=== PATIENT | female | born 1960 | race Hispanic/Latino ===

== ENCOUNTER 2025-08-27 14:58 | Observation (INO) | payer MEDICARE, BC ==
[2025-08-27 15:46] LABS: #Basophils 0.03 10x3/uL (0.0-0.2); #Eosinophils 0.10 10x3/uL (0.0-0.5); #Monocytes 0.33 10x3/uL (0.0-1.1); #Neutrophils 2.03 10x3/uL (1.5-8.4); %Basophils 0.9 % (0.0-2.0); %Eosinophils 3.2 % (0.0-6.0); %Lymphocytes 21.1 % (18.0-47.0); %Monocytes 10.4 % (0.0-10.0); %Neutrophils 64.1 % (40.0-75.0); Hematocrit 40.1 % (34.9-44.5); Hemoglobin 13.3 g/dL (12.0-15.5); Mean Corpuscular Hemoglobin 29.1 pg (27.0-33.0); Mean Corpuscular Volume 87.7 fL (81.6-98.3); Platelet Count 227 10x3/uL (150-450); Red Blood Cell (RBC) Count 4.57 10x6/uL (3.90-5.03); White Blood Cell (WBC) Count 3.17 10x3/uL (3.5-10.5)
[2025-08-27] MEDS ORDERED: Acetaminophen 500 MG TAB ONE (15:54)
[2025-08-27 16:01] LABS: ALT (SGPT) 14 U/L (Less than 34); AST (SGOT) 26 U/L (11-34); Albumin 3.8 g/dL (3.1-4.5); Alkaline Phosphatase 82 U/L (40-110); Anion Gap 14 mmol/L (10-20); BUN (Urea Nitrogen) 12 mg/dL (9.8-20.1); Bilirubin, Total 0.7 mg/dL (0.3-1.2); Calc. Creatinine Clearance 0 mL/min (70-130); Calcium 8.9 mg/dL (7.8-10.44); Carbon Dioxide 21 mmol/L (23-31); Chloride 110 mmol/L (98-107); Globulin 2.8 g/dL (2.4-3.5); Glucose 98 mg/dL (80-115); Potassium 3.8 mmol/L (3.5-5.1); Sodium 141 mmol/L (136-145)
[2025-08-27 16:08] LABS: Troponin I Less than 0.010 ng/mL (< 0.028)
[2025-08-27] MEDS ORDERED: Senokot S 8.6-50 MG TAB PO PRN (17:51)
[2025-08-27] MEDS ORDERED: Melatonin 3 MG TAB PO PRN (17:51)
[2025-08-27] MEDS ORDERED: Calcium Carbonate 500 MG ChewTAB PO PRN (17:51)
[2025-08-27] MEDS ORDERED: Electrolyte Replacement Protocol 1 EACH FS SCH (18:00)
[2025-08-27 18:03] VITALS: BMI 35.9
[2025-08-27 18:04] LABS: Magnesium 2.0 mg/dL (1.6-2.6)
[2025-08-27] MEDS ORDERED: Magnesium Sulfate In Water 4 GM in Premix 1 BAG IVPB PRN (18:15)
[2025-08-27] MEDS ORDERED: PHOS-NAK 1 PKT PACK PO PRN (18:15)
[2025-08-27] MEDS ORDERED: Potassium Chloride 20 MEQ in Premix 1 BAG IVPB PRN (18:15)
[2025-08-27 20:08] LABS: Troponin I Less than 0.010 ng/mL (< 0.028)
[2025-08-27 23:27] LABS: Troponin I Less than 0.010 ng/mL (< 0.028)
[2025-08-28 04:26] LABS: #Basophils Less than 0.03 10x3/uL (0.0-0.2); #Eosinophils 0.16 10x3/uL (0.0-0.5); #Monocytes 0.35 10x3/uL (0.0-1.1); #Neutrophils 1.65 10x3/uL (1.5-8.4); %Basophils 0.7 % (0.0-2.0); %Eosinophils 5.2 % (0.0-6.0); %Lymphocytes 28.8 % (18.0-47.0); %Monocytes 11.4 % (0.0-10.0); %Neutrophils 53.9 % (40.0-75.0); Hematocrit 37.0 % (34.9-44.5); Hemoglobin 12.7 g/dL (12.0-15.5); Mean Corpuscular Hemoglobin 30.2 pg (27.0-33.0); Mean Corpuscular Volume 87.9 fL (81.6-98.3); Platelet Count 204 10x3/uL (150-450); Red Blood Cell (RBC) Count 4.21 10x6/uL (3.90-5.03); White Blood Cell (WBC) Count 3.06 10x3/uL (3.5-10.5)
[2025-08-28 04:45] LABS: Anion Gap 12 mmol/L (10-20); BUN (Urea Nitrogen) 9 mg/dL (9.8-20.1); Calc. Creatinine Clearance 157 mL/min (70-130); Calcium 8.5 mg/dL (7.8-10.44); Carbon Dioxide 22 mmol/L (23-31); Cardiac Risk 3.0 (Less than 4.5); Chloride 109 mmol/L (98-107); Cholesterol 142 mg/dl (< 200 Desired); Glucose 79 mg/dL (80-115); HDL Cholesterol 47 mg/dL (>60 Neg Risk); LDL Cholesterol, Calculated 81 mg/dL; Magnesium 1.9 mg/dL (1.6-2.6); Potassium 3.3 mmol/L (3.5-5.1); Sodium 140 mmol/L (136-145); Triglycerides 72 mg/dL (Less than 150)
[2025-08-28] MEDS: Acetaminophen 325 MG TAB PO PRN (05:36)
[2025-08-28] MEDS: PNEUMOC 20-VAL CONJ-DIP CRM/PF 0.5 ML SYRINGE IM ONE (10:08)
[2025-08-28] MEDS: Pantoprazole 40 MG DR.TAB PO SCH (10:08)
[2025-08-28] MEDS: Enoxaparin 40 MG (0.4 mL) SYRINGE SC SCH (10:08)
[2025-08-28] MEDS: Metoprolol Succinate XL 25 MG ER.TAB PO SCH (11:35)
[2025-08-28 12:49] VITALS: BP 102/51; TEMP 97.9
[2025-08-29] MEDS ORDERED: Metoprolol Succinate XL 25 MG ER.TAB PO SCH (09:00)
== END 2025-08-28 13:38 | disposition home or self-care (01) ==
LOC: CSHERS 14:58 → CSHTELE 16:41
PROVIDERS: ADMIT Family Medicine; ATTEND Internal Medicine
DX: R55 Syncope and collapse (principal); J30.2 Other seasonal allergic rhinitis; Z90.710 Acquired absence of both cervix and uterus; Z90.49 Acquired absence of other specified parts of digestive tract
CPT/HCPCS: 70450; 71045; 72125; 80048; 80061; 83735 ×2; 84100; 84484 ×2; 85025; 93005; 93306; 93880; 94760; 94762; 96372; 99285; G0378 ×3; J1650; J7120; 36415; 80053; 84443